=== PATIENT | female | born 1970 | race African-American/Black ===

== ENCOUNTER 2018-08-03 08:39 | Observation (INO) ==
[2018-08-03] MEDS ORDERED: ASPIRIN PO ONE (08:48)
[2018-08-03 09:07] LABS: BASO# 0.04 X1000 (0.0-0.2); BASO% 0.7 % (0.0-0.8); EOS# 0.04 X1000 (0.0-0.7); EOS% 0.7 % (0.0-10.0); HEMATOCRIT 37.7 % (37.0-47.0); HEMOGLOBIN 13.1 g/dL (12.0-16.0); IMM GRAN# 0.01 X1000 (0.0-0.04); IMM GRAN% 0.2 % (0.0-0.5); LYMPH# 1.51 X1000 (1.2-3.4); MCH 28.4 PG (27-31); MCHC 34.7 g/dL (33-37); MCV 81.6 FL (81-99); MONO# 0.32 X1000 (0.11-0.59); MONO% 5.9 % (1.7-9.3); NEUT# 3.47 X1000 (1.4-6.5); NEUT% 64.5 % (42.2-75.2); PLT 330 X1000 (130-400); RBC 4.62 XMIL (4.2-5.4); RDW 13.8 % (11.5-14.5); WBC 5.39 X1000 (4.8-10.8)
--- NOTE | 2018-08-03 09:18 | PROVIDER DOCUMENTATION ---
HPI-Chest Pain - General Chief Complaint: Chest Pain Stated Complaint: CHEST PAIN Time Seen by Provider: 08/03/18 08:57 Source: patient - History of Present Illness-CP Nature of Presenting Problem: Patient is a 47 yobf presenting to the ED today for chest pain, SOB, dizziness. She reports she had "heartburn" at bedtime last night, but went to sleep and woke up this morning and it was gone. She states she was getting out of her car at work this morning and felt a "knot" in her chest. When she got out of her car she reported feeling "lightheaded and short of breath". She denies having pain like this before. She denies shoulder, arm, or jaw pain. Denies history of anxiety or depression. No recent surgeries and she is not on control. She reports taking amlodipine daily, and her feet swell 2-3 times per week every since she started taking the medication 2 years ago. She reports taking sinus medication daily for 1 year for seasonal allergies. She denies ever having a murmur or cardiac history, other than HTN. She reports she does have a history of GERD and takes medication PRN for it, but this feels different than her typical GERD. Location: reports: substernal, epigastric Chest Pain Radiation: reports: no radiation Quality of Pain: reports: indigestion, throbbing. denies: tightness Severity in ED: mild Onset/Duration: 1-3 hours ago Timing: gone now Context/Activities at Onset: reports: light activity Modifying Factors: improves with: nothing Associated Symptoms: reports: diaphoresis, dizziness, heartburn, shortness of breath. denies: fatigue, fever/chills, nausea, vomiting Nitro Today/Relief: no nitro taken today Aspirin Treatment Today: provided by ED Prior Chest Pain/Cardiac Workup: reports: no prior chest pain, no prior cardiac workup Similar Symptoms Previously?: No Recently Seen Here or By Another Healthcare Provider: Yes (seen at urgent care this morning and was sent here ) Review of Systems - Adult - REVIEW OF SYSTEMS - ADULT Constitutional: reports: no symptoms reported Eyes: reports: no symptoms reported Ears, Nose, Mouth & Throat: reports: no symptoms reported Cardiovascular: reports: chest pain. denies: heart murmur, palpitations, syncope Respiratory: reports: dyspnea on exertion, shortness of breath. denies: cough Gastrointestinal: reports: frequent heartburn. denies: abdominal pain, diarrhea, nausea, vomiting Genitourinary: reports: no symptoms reported Musculoskeletal: reports: no symptoms reported Integumentary: reports: no symptoms reported Neurological: reports: dizziness/vertigo. denies: syncope Psychiatric: reports: no symptoms reported Endocrine: reports: no symptoms reported Hematologic/Lymphatic: reports: no symptoms reported Allergic/Immunologic: reports: no symptoms reported All Other Systems: Reviewed and Negative Past History - Adult - PAST MEDICAL HISTORY-ADULT Review of Records: reports: Old Records Reviewed, Nursing Assessment Review, Medications Reviewed Major Childhood Illnesses: reports: denies history Cardiovascular: reports: HTN Respiratory: reports: denies history Gastrointestinal: reports: GERD Genitourinary: reports: denies history Musculoskeletal: reports: denies history Neurological: reports: denies history Psychiatric: reports: denies history Endocrine/Immune: reports: denies history Other Conditions: reports: denies history - FAMILY HISTORY Family History: HTN - SOCIAL HISTORY Smoking: denies Physical Exam-General - PHYSICAL EXAM-ADULT Initial Vital Signs Reviewed: Yes - CONSTITUTIONAL General Appearance: appears well, alert, no apparent distress - EYES Eyes: PERRL/EOMI, pink conjunctivae - HEAD, EARS, NOSE, MOUTH & THROAT HENMT: normocephalic/atraumatic - NECK Neck: non-tender, full range of motion, supple - RESPIRATORY Respiratory: chest non-tender, lungs clear, normal breath sounds, no respiratory distress, no accessory muscle use - CARDIOVASCULAR Cardiovascular: normal peripheral pulses, regular rate, rhythm, no edema, no gallop, no JVD, no murmur - GASTROINTESTINAL (ABDOMEN) Abdominal Exam: normal bowel sounds, non tender, soft - LYMPHATIC Lymphatic: no adenopathy - MUSCULOSKELETAL Back Exam: no CVA tenderness, no vertebral tenderness Extremity: normal range of motion, non-tender, normal gait - SKIN Integumentary: normal color, normal turgor, warm/dry - NEUROLOGIC Neurologic: grossly normal - PSYCHIATRIC Psych/Mental Status: normal mood/affect, normal thought content, normal thought process, oriented x 3 - HEART Score HEART Score: History: Slightly Suspicious HEART Score: ECG: Normal HEART Score: Age: 45-65 Years HEART Score: Risk Factors for Atherosclerotic Disease: 1 or 2 Risk Factors HEART Score: Troponin: < or = Normal Limit Total HEART Score:: 2 Progress - PLAN OF CARE/RESULTS Progress/Plan/Lab Results: Vital Signs - 8 hr 08/03/18 08:42 08/03/18 10:21 Temperature 97.7 F Pulse Rate 69 60 Respiratory Rate 18 20 Blood Pressure 144/94 158/100 O2 Sat by Pulse Oximetry 97 98 Laboratory Results - last 24 hr 08/03/18 08/03/18 08/03/18 08:55 08:55 08:55 WBC 5.39 RBC 4.62 Hgb 13.1 Hct 37.7 MCV 81.6 MCH 28.4 MCHC 34.7 RDW Std Deviation 13.8 Plt Count 330 MPV 10.0 Immature Gran % (Auto) 0.2 Neut % (Auto) 64.5 Lymph % (Auto) 28.0 [place] % (Auto) 5.9 Eos % (Auto) 0.7 Baso % (Auto) 0.7 Immature Gran # (Auto) 0.01 Neut # (Auto) 3.47 Lymph # (Auto) 1.51 [place] # (Auto) 0.32 Eos # (Auto) 0.04 Baso # (Auto) 0.04 PT INR PTT (Actin FS) D-Dimer, Quantitative Sodium 140 Potassium 3.8 Chloride 104 Carbon Dioxide 24 L Anion Gap 12 BUN 9 Creatinine 0.6 Estimated GFR/1.73 m2 > 60 BUN/Creatinine Ratio 15 Glucose 85 Calculated Osmolality 277 Calcium 9.1 Total Bilirubin 0.30 AST 24 ALT 21 Alkaline Phosphatase 64 Creatine Kinase 94 Troponin T Ikh-H-Kllhnoefwsa Pept 56 Total Protein 7.4 Albumin 4.4 Globulin 3.0 Albumin/Globulin Ratio 1.0 08/03/18 08/03/18 08/03/18 08:55 08:55 08:55 WBC RBC Hgb Hct MCV MCH MCHC RDW Std Deviation Plt Count MPV Immature Gran % (Auto) Neut % (Auto) Lymph % (Auto) [place] % (Auto) Eos % (Auto) Baso % (Auto) Immature Gran # (Auto) Neut # (Auto) Lymph # (Auto) [place] # (Auto) Eos # (Auto) Baso # (Auto) PT 12.8 INR 0.92 PTT (Actin FS) 31.2 D-Dimer, Quantitative < 0.27 Sodium Potassium Chloride Carbon Dioxide Anion Gap BUN Creatinine Estimated GFR/1.73 m2 BUN/Creatinine Ratio Glucose Calculated Osmolality Calcium Total Bilirubin AST ALT Alkaline Phosphatase Creatine Kinase Troponin T < 0.010 Dgs-B-Vgyplrvtyuh Pept Total Protein Albumin Globulin Albumin/Globulin Ratio Orders Category Date Time Status Cardiac Monitoring DIRECTED Care 08/03/18 08:48 Active Oxygen Therapy- ED Nursing DIRECTED Care 08/03/18 08:48 Active Saline Loc NOW Care 08/03/18 08:48 Active CHEST-2 VIEWS [RAD] Stat Exams 08/03/18 08:48 Completed CBC WITH ELECTRONIC DIFF [HEME] Stat Lab 08/03/18 08:55 Completed CK PROFILE [SP CHEM] Stat Lab 08/03/18 08:55 Completed COMPREHENSIVE METABOLIC PANEL [CHEM] Stat Lab 08/03/18 08:55 Completed D-DIMER [COAG] Stat Lab 08/03/18 08:55 Completed PRO B-NATRIURETIC PEPTIDE Stat Lab 08/03/18 08:55 Completed PROTIME WITH INR [COAG] Stat Lab 08/03/18 08:55 Completed PTT [COAG] Stat Lab 08/03/18 08:55 Completed TROPONIN T Stat Lab 08/03/18 08:55 Completed Aspirin Med 08/03/18 08:48 Discontinued 325 mg PO NOW ONE CP/SOB/Palp >45 yrs of Age Stat Oth 08/03/18 08:48 Ordered EKG [EKG] Stat Ther 08/03/18 08:48 Ordered Discussed plan of care with patient, she agrees with plan of care and denies any questions at this time. 0950- Dr. Aguilar in to see patient. Discussed plan of care with Dr. Aguilar. Result Diagrams: 08/03/18 08:55 08/03/18 08:55 - EKG 1 Time of EKG reading by physician:: 08:50 EKG Read and Signed by:: Nima Aguilar EKG Interpretation (*Must complete 3 of following elements*): Abnormal Rate: 61 QRS: LVH WA Interval: normal ST Wave: normal Prior EKG Comparison: no prior EKG - XRAY 1 XRAY Study: Chest Impression: See EMR Report ( EXAM: CHEST-2 VIEWS HISTORY: chest pain TECHNIQUE: Chest two views COMPARISON: None. FINDINGS: The lungs are well expanded. The heart is not enlarged. The vessels are not distended. There are no infiltrates. No pleural effusions. IMPRESSION: No acute abnormality. Electronically signed by Luc Diaz 08/03/2018 9:22 AM 08/03/18 0922 Interpreting Physician: Luc Diaz MD Dictated Date/Time: 08/03/18919 cc: Nima Aguilar MD; None,PCP) - CONSULTS/PCP/HOSPITALIST Notification #1 *Consult/PCP/Hospitalist*: Dr. Lee Mane Time Discussed: 10:15 Reason/Comments: admit for cardiac workup Consult Disposition: Admit Departure - Departure Date of Disposition Decision: 08/03/18 Time of Disposition Decision: 10:11 DIAGNOSIS: Chest pain Qualifiers: Chest pain type: unspecified Qualified Code(s): R07.9 - Chest pain, unspecified Disposition: ADMITTED INPATIENT 09 Certified Medical Emergency: Emergent Condition: Stable Referrals and Follow-Ups: None,PCP [Primary Care Provider] - - Critical Care Note This patient required my direct & personal management of CC.: No Attestation - Physician/ RAIZA Attestation Patient care was provided by Advanced Practice Provider:: Yes Advanced Practice Provider:: Nancy Ballard Advanced Practice Provider documentation review:: The Mid-level provider documentation, treatment plan and medical decision making was reviewed by the physician who agrees with all treatment and medical decision making by the P. The physician spent face to face time with patient:: Yes (Dr. Aguilar) Advanced Practice Provider documentation review:: Supervising physician onsite and consulted in the evaluation and care of this patient. The physician did have a face to face encounter with the patient.
[2018-08-03 09:23] LABS: AGAP 12; ALBUMIN 4.4 g/dL (3.5-5.0); ALKALINE PHOSPHATASE 64 U/L (32-104); BUN 9 mg/dL (8-22); CALCIUM 9.1 mg/dL (8.8-10.2); CHLORIDE 104 mmol/L (98-107); CK PROFILE 94 U/L (24-173); COSMO 277; CREATININE 0.6 mg/dL (0.5-0.9); ESTIMATED GFR > 60; GLUCOSE 85 mg/dL (70-104); GOT 24 U/L (10-30); GPT 21 U/L (10-36); POTASSIUM 3.8 mmol/L (3.5-5.1); SODIUM 140 mmol/L (136-145); TCO2 24 mmol/L (25-35); TOTAL PROTEIN 7.4 g/dL (6.3-8.3)
--- NOTE | 2018-08-03 09:25 | Diag Imaging Result Doc PS360 ---
EXAM: CHEST-2 VIEWS HISTORY: chest pain TECHNIQUE: Chest two views COMPARISON: None. FINDINGS: The lungs are well expanded. The heart is not enlarged. The vessels are not distended. There are no infiltrates. No pleural effusions. IMPRESSION: No acute abnormality. Electronically signed by Luc Diaz 08/03/2018 9:22 AM
[2018-08-03 09:50] LABS: INR 0.92; PROTIME 12.8 Seconds (11.0-16.0)
[2018-08-03 09:51] LABS: PTT 31.2 Seconds (22.3-41.8)
--- NOTE | 2018-08-03 10:34 | EKG Report ---
Test Performed on : 08/03/2018 08:50:52 AM Test Reason : chest pain Blood Pressure : / mmHG Vent. Rate : 061 BPM Atrial Rate : 326 BPM P-R Int : 168 ms QRS Dur : 080 ms QT Int : 444 ms P-R-T Axes : 070 -03 017 degrees QTc Int : 446 ms Undetermined rhythm Moderate voltage criteria for LVH, may be normal variant Borderline ECG No previous ECGs available Unconfirmed Result
[2018-08-03] MEDS ORDERED: ASPIRIN ONE (11:15)
[2018-08-03] MEDS ORDERED: G.I. COCKTAIL PO PRN (17:12)
[2018-08-03] MEDS ORDERED: ZOFRAN IV PRN (17:12)
--- NOTE | 2018-08-03 19:38 | HISTORY AND PHYSICAL ---
CHIEF COMPLAINT: Epigastric pain, chest pain, with indigestion. HISTORY OF PRESENT ILLNESS: This is a 47-year-old female with a history of hypertension, who presents to the emergency room complaining of chest pain, shortness of breath, dizziness, and heartburn. She states that symptoms began last night. She went to sleep and woke up and symptoms had subsided. Today, she got out of her car, felt like she had a knot in her chest in the epigastric area. She began to feel lightheaded and short of breath. She denied any radiation of this pain, any further complicating symptoms. The pain did subside and has not recurred. The patient does have a history of hypertension. She has been on amlodipine for 2 years and has had lower extremity edema during this time. PAST MEDICAL HISTORY: Hypertension, gastroesophageal reflux disease. PAST SURGICAL HISTORY: Denies. SOCIAL HISTORY: She denies alcohol, tobacco, or illicit drug use. ALLERGIES: No known drug allergies. HOME MEDICATIONS: Norvasc 5 mg p.o. daily. REVIEW OF SYSTEMS: Discussed with patient, with pertinent positives stated in the HPI. She denied any syncope, any palpitations, any vomiting, diarrhea, constipation, black or bloody vomitus or stools, any hematuria, dysuria, frequency, or urgency. No fevers, chills, or body aches. PHYSICAL EXAMINATION: GENERAL: This is a 47-year-old female who is lying in the bed on the medical/surgical floor in no distress. VITAL SIGNS: Blood pressure is 142/86 with a heart rate of 65, respirations are 18, temperature is 97.4 degrees with room air saturations 100%. EYES: Pupils equal, round, react to light. EOMs are intact. Sclerae are anicteric. HEENT: Head is normocephalic, atraumatic. Mucous membranes are moist. NECK: Supple, with trachea midline. CARDIOVASCULAR: Regular rate and rhythm. S1 and S2 appreciated. No murmur. Calves are nontender, bilateral, with peripheral pulses palpable x4 extremities. PULMONARY: Breath sounds are clear with no increased work of breathing noted. GASTROINTESTINAL: Abdomen is soft. She does have some epigastric tenderness to palpation. She is nondistended, with bowel sounds in all 4 quadrants. NEUROLOGIC: She is alert and oriented x3. SKIN: Warm and dry. GENITOURINARY: She has no CVA nor suprapubic tenderness. LABORATORIES: WBC is 5.3 with hemoglobin 13.1, hematocrit 37.7, and platelets of 330,000. Sodium 140, potassium 3.8, BUN 9, creatinine 0.6, with glucose of 85. Troponins are negative. IMAGING STUDIES: Chest x-ray reveals no acute abnormality. ASSESSMENT AND PLAN: 1. Chest pain. The patient has been admitted to the medical-surgical floor at [place]. She will be placed on telemetry. We will continue to trend troponins. 2. Epigastric pain. We will monitor. We will try a GI cocktail for any recurrence of pain. 3. Gastroesophageal reflux disease. Start PPI. 4. Hypertension. The patient has been on Norvasc, although she has had lower extremity edema for the last 2 years while on this. 5. For deep vein thrombosis prophylaxis, we will use Lovenox, and for gastrointestinal prophylaxis, Prilosec. 6. Further treatments pending hospital course. and discussion with Dr Mane. Dictated by DEANDRE Chaves for Indra Mane MD cc: DEANDRE Chaves MD [facility]
--- NOTE | 2018-08-03 20:19 | HISTORY AND PHYSICAL ---
ADDENDUM TO HISTORY AND PHYSICAL: Patient seen and examined by myself. Full note dictated and discussed with nurse practitioner. Patient presented to the hospital with chest tightness. States she feels like there is a knot in her chest. Does have a longstanding history of reflux, but does not think she has been having much trouble lately. She is not taking any reflux medications. She also reported feeling lightheaded and somewhat short of breath, but notes those symptoms are gone. She had no radiation of the pain. Currently, she is awake, alert, oriented, very pleasant to talk with. No distress. We will admit her to the hospital, rule out for ME. We will place her on a GI cocktail and give her PPI and will follow. cc: Indra Mane MD
[2018-08-04 05:49] LABS: HEMATOCRIT 37.4 % (37.0-47.0); HEMOGLOBIN 12.7 g/dL (12.0-16.0); MCH 27.9 PG (27-31); MPV 9.7 FL (7.4-10.4); RBC 4.56 XMIL (4.2-5.4); RDW 13.9 % (11.5-14.5); WBC 5.46 X1000 (4.8-10.8)
[2018-08-04 06:06] LABS: AGAP 9; BUN 7 mg/dL (8-22); CALCIUM 8.6 mg/dL (8.8-10.2); CHLORIDE 105 mmol/L (98-107); COSMO 276; CREATININE 0.6 mg/dL (0.5-0.9); ESTIMATED GFR > 60; GLUCOSE 100 mg/dL (70-104); POTASSIUM 3.7 mmol/L (3.5-5.1); SODIUM 139 mmol/L (136-145); TCO2 25 mmol/L (25-35)
[2018-08-04] MEDS ORDERED: PRILOSEC PO SCH (07:00)
[2018-08-04] MEDS: LOVENOX SUBQ SCH ×2 (07:44→10:23)
[2018-08-04 08:45] VITALS: BP 145/90
--- NOTE | 2018-08-04 15:19 | Diag Imaging Result Document ---
PROCEDURE NAME: MYOCARDIAL PERF SCAN, STR/REST - 08/04/2018 INDICATION: Chest pain. PROCEDURES PERFORMED: 1. Lisa protocol stress. 2. One-day stress rest myocardial perfusion imaging. PROCEDURE IN DETAIL: Ms. Garcia was brought to the nuclear laboratory and had a resting study with injection of 15.9 mCi of technetium-99m sestamibi with usual imaging protocol utilized. Subsequently was brought back and had a Lisa protocol stress and at peak stress, was injected with 45.1 mCi of technetium-99m sestamibi with usual imaging protocol utilized. FINDINGS: LISA PROTOCOL STRESS RESULTS: 1. Baseline EKG showed sinus rhythm. 2. Patient exercised for a total of 7 minutes 28 seconds, achieving peak heart rate of 151 which was 87% of age predicted max. She achieved 9.2 METS in stage 3 of the Lisa protocol. Exercise capacity was 100% of age and sex predicted exercise capacity. 3. Somewhat flat blood pressure response to exercise. 4. Test was terminated due to fatigue. 5. No anginal complaints occurred during the course of study. 6. No ischemic related EKG changes or significant arrhythmias. PERFUSION IMAGING RESULTS: 1. No evidence of abnormal extracardiac uptake. 2. TID ratio 0.97. 3. Perfusion imaging shows a small size, mild intensity, fixed defect at the apex likely suggestive of apical thinning artifact. There is no evidence of ischemic changes. 4. Normal ejection fraction of 70%, end-diastolic volume 118, end systolic volume 36. Normal wall motion. cc: MD Jeimy Wilson CRNP
--- NOTE | 2018-08-04 21:33 | DISCHARGE SUMMARY ---
ADMISSION DATE: 08/03/2018 DISCHARGE DATE: 08/04/2018 DIAGNOSES: 1. Chest pain. 2. Epigastric pain resolved. 3. Gastroesophageal reflux disease. 4. Hypertension. DIAGNOSTICS: Myocardial perfusion scan revealed no evidence of abnormal extracardiac uptake. There is no evidence of ischemic changes. Normal ejection fraction of 70%. Normal wall motion. The patient exercised for a total of 7 minutes 28 seconds achieving peak heart rate of 151, which was 87% of age predicted max. She achieved 9.2 METS and stage III the Tommy protocol. Exercise capacity was 100% of age and predicted exercise and sex predicted exercise capacity somewhat flat, blood pressure response to exercise, test was terminated due to fatigue. No anginal complaints. No ischemic related EKG changes or significant arrhythmias. Chest x-ray revealed no acute abnormality. HOSPITAL COURSE: Ms Garcia presented to the emergency room complaining of epigastric pain with indigestion. This was relieved by a GI cocktail and thankfully did not recur. She ruled out with troponins. She underwent a myocardial perfusion scan which was negative for ischemia. Thankfully she is ready for discharge. DISCHARGE PHYSICAL EXAM: Vital signs: Blood pressure is 145/90 with heart rate of 62, respirations 16, temperature is 97.9 degrees with room air saturations 100. Cardiovascular: Regular rate and rhythm. S1 and S2 appreciated. She has no lower extremity edema. Peripheral pulses are palpable x4 extremities. Calves are nontender to palpation bilateral. Pulmonary: Breath sounds are clear. No increased work of breathing noted. Gastrointestinal: Abdomen soft, nontender, nondistended with bowel sounds in all 4 quadrants. Neurologic: She is alert, oriented x3. DISCHARGE MEDICATIONS: Norvasc 5 mg p.o. daily, Prilosec 40 mg p.o. daily. FOLLOWUP: 1. She is to call Tuesday and schedule followup appointment with her primary care physician to pursue. 2. Dr. Kyler Siegel in GI. She is to call and schedule an appointment. The patient wishes to discuss this with her primary care physician regarding the choice of a GI physician to follow up with. She has been instructed to call to be seen sooner or return to the ER for recurring chest pain, indigestion, any syncope, dizziness, palpitations, any nausea, vomiting, diarrhea, constipation, black or bloody vomitus or stools for any hematuria, dysuria, frequency, urgency or for any questions or concerns that she may have. She is being discharged home in stable condition with family members. TIME SPENT: Greater than 30 minutes. Dictated by DEANDRE Chaves for Indra Mane MD cc: DEANDRE Chaves MD
--- NOTE | 2018-08-05 05:52 | DISCHARGE SUMMARY ---
ADMISSION DATE: 08/03/2018 DISCHARGE DATE: 08/04/2018 ADDENDUM: Patient seen and examined by myself. Full note dictated and discussed with nurse practitioner. The patient thankfully had an uneventful hospital course. She was admitted with chest pain, ruled out with her enzymes and thankfully her stress test was negative. Therefore, she will be discharged home. cc: Indra Mane MD
== END 2018-08-04 16:20 | disposition home or self-care (01) ==
LOC: P.MEDSURG 08:39 → P.ED 08:39
PROVIDERS: ATTEND Family Medicine
CPT/HCPCS: 71020; 71046; 78452; 80048; 80053; 82550; 83880; 84484; 85025; 85027; 85379; 85610; 85730; 93005; 93017; 99285; A9270; A9500; J1650; J2405